=== PATIENT | female | born 1985 | race Hispanic/Latino ===

== ENCOUNTER 2016-09-26 13:15 | Emergency (ER) | payer OTHER ==
[~2016-09-26] VITALS: Ht 165.1 cm; Wt 70.9 kg
[~2016-09-26 13:15] MED LIST: ADDERALL XR 2020 MG PO; ADDERALL XR 3030 MG PO; ADDERALL20 MG PO; ADDERALL30 MG PO; ATIVAN0.5 MG PO; BACLOFEN10 MG PO; BACTRIM,SEPT1 TABLET PO; BENTYL10 MG PO; CIPRO500 MG PO; Ceftin PO; DEPAKOTE ER500 MG PO; DEPAKOTE500 MG PO; DILAUDID2 MG PO; DIVALPROEX SOD500 MG PO; Depakote ER (Extende PO; FLEXERIL5 MG PO; GEODON20 MG PO; GEODON40 MG PO; GEODON80 MG PO; Geodon PO; HYDROCODON-ACE1 EACH PO; Habitrol,Nicoderm CQ TD; IBUPROFEN800 MG PO; LAMICTAL100 MG PO; LIDOCAINE5 GM TP; LORAZEPAM0.5 MG PO; MAGIC MOUTHWASH1 ML MM; METHYLPHENIDATE20 M1 PO; MINIPRESS2 MG PO; MORPHINE SULFAT15 M1 PO; NAPROSYN500 MG PO; NAPROXEN500 MG PO; PERCOCET 5/31 TABLET PO; PREDNISONE20 MG PO; PROTONIX40 MG PO; RESTORIL15 MG PO; RITALIN20 MG PO; RITALIN5 MG PO; ROBAXIN500 MG PO; SERTRALINE HCL100 MG PO; SERTRALINE HCL50 MG PO; SULINDAC200 MG PO; Stool; TOPAMAX100 MG PO; TOPAMAX50 MG PO; TOPIRAMATE100 MG PO; TORADOL10 MG PO; TUMS500 MG PO; ULTRAM50 MG PO; VALIUM5 MG PO; VALTREX1000 MG PO; VENLAFAXINE HCL75 M3 PO; VOLTAREN50 MG PO; ZIPRASIDONE HCL40 MG PO; ZIPRASIDONE HCL80 MG PO; ZOLOFT100 MG PO; ZOLOFT50 MG PO; Zoloft PO
[2016-09-26 13:34] VITALS: BP 117/75
[2016-09-26] MEDS ORDERED: INDOCIN50 MG PO (16:35)
[2016-09-26] MEDS ORDERED: PREDNISONE20 MG PO (16:35)
== END 2016-09-26 17:58 | disposition home or self-care (01) ==
LOC: EME 13:15
DX: S16.1XXA Strain of muscle, fascia and tendon at neck level, initial encounter (principal); M54.5 Low back pain; R51 Headache; M79.604 Pain in right leg; M79.601 Pain in right arm; V47.5XXA Car driver injured in collision with fixed or stationary object in traffic accident, initial encounter; W22.10XA Striking against or struck by unspecified automobile airbag, initial encounter; G89.29 Other chronic pain; Z79.891 Long term (current) use of opiate analgesic
CPT/HCPCS: 72040; 72100; 99281; 99283

== ENCOUNTER 2017-04-09 21:10 | Emergency (ER) | payer OTHER ==
[~2017-04-09] VITALS: Ht 165.1 cm; Wt 90.1 kg
[~2017-04-09 21:10] MED LIST changes: +INDOCIN50 MG PO
[2017-04-09 22:28] LABS: POINT-OF-CARE METER ID UU13113747
[2017-04-09 22:33] LABS: INTERNAL CONTROL VALID? YES
[2017-04-09 22:41] LABS: ADD MIUA? YES; BILIRUBIN NEGATIVE; BLOOD SMALL; COLOR YELLOW ((YELLOW)); GLUCOSE (STRIP) NEGATIVE; KETONES NEGATIVE; LEUKOCYTES LARGE; NITRITE POSITIVE; PROTEIN (STRIP) 30; SPECIFIC GRAVITY 1.017 (1.000-1.030); UROBILINOGEN 0.2 MG/DL (0.2-1.0)
[2017-04-09 23:06] LABS: RED BLOOD CELLS 0-5 /HPF (0-5)
[2017-04-09 23:07] LABS: AMORPHOUS PHOSPHATE CRYSTALS 2+; BACTERIA 3+ /HPF; CASTS NONE SEEN /LPF; CRYSTALS PRESENT; EPITHELIAL CELLS 2+ /HPF; MUCUS RARE /LPF; UCUL ADDED? YES
[2017-04-09] MEDS ORDERED: BACTRIM,SEPT1 TABLET PO (23:09)
[2017-04-09 23:18] VITALS: BP 119/71
== END 2017-04-09 23:19 | disposition home or self-care (01) ==
LOC: EME 21:10 → EXP 21:10
PROVIDERS: Physician Assistant
DX: N39.0 Urinary tract infection, site not specified (principal); R11.2 Nausea with vomiting, unspecified; Z90.710 Acquired absence of both cervix and uterus; Z88.0 Allergy status to penicillin; F17.200 Nicotine dependence, unspecified, uncomplicated
CPT/HCPCS: 81003; 82948; 84703; 87077; 87086; 87186; 99281; 99284

== ENCOUNTER 2017-06-28 11:21 | Emergency (ER) | payer OTHER ==
[~2017-06-28] VITALS: Ht 165.1 cm; Wt 92.5 kg
[2017-06-28 12:25] LABS: HEMATOCRIT 40.2 % (36.0-46.0); MCH 31.8 PG (29.0-34.0); MCHC 33.8 G/DL (30.0-36.0); MCV 93.9 FL (83-99); MEAN PLAT.VOLUME 10.3 uM^3 (9.5-12.4); PLATELET COUNT 246 K/uL (156-360); RBC DIS.WIDTH-CV 14.7 % (11.8-14.6); RBC DIS.WIDTH-SD 51.4 % (39-53); RED BLOOD COUNT 4.28 M/uL (3.80-5.20); WHITE BLOOD COUNT 6.7 K/uL (4.1-10.2)
[2017-06-28 12:34] LABS: CHLORIDE 108 mEq/L (99-109); POTASSIUM 4.9 mEq/L (3.7-5.4); SODIUM 140 mEq/L (136-147)
[2017-06-28 12:36] LABS: GLUCOSE 98 mg/dL (70-99)
[2017-06-28 12:37] LABS: ANION GAP 8 MEQ/L (2-14)
[2017-06-28 12:38] LABS: TOTAL BILIRUBIN 0.2 mg/dL (0.0-1.0)
[2017-06-28 12:40] LABS: ALKALINE PHOSPHATASE 70 IU/L (3-129); GFR ESTIMATE (CALCULATED) > 59 mL/min/
[2017-06-28 12:41] LABS: UREA NITROGEN (BUN) 7 mg/dL (9-23)
[2017-06-28 12:48] LABS: QUANTITATIVE HCG < 4.0 MIU/ML
[2017-06-28 13:05] LABS: ADD MIUA? YES; BILIRUBIN NEGATIVE; BLOOD NEGATIVE; COLOR YELLOW ((YELLOW)); GLUCOSE (STRIP) NEGATIVE; KETONES NEGATIVE; LEUKOCYTES NEGATIVE; NITRITE NEGATIVE; PROTEIN (STRIP) NEGATIVE; SPECIFIC GRAVITY 1.011 (1.000-1.030); UROBILINOGEN 0.2 MG/DL (0.2-1.0)
[2017-06-28 13:14] LABS: BACTERIA RARE /HPF; EPITHELIAL CELLS 3+ /HPF; MUCUS TRACE /LPF; RED BLOOD CELLS 0-5 /HPF (0-5); UCUL ADDED? NO; WHITE BLOOD CELLS 0-5 /HPF (0-5)
[2017-06-28] MEDS ORDERED: CITRATE OF MAG296 ML PO (13:59)
[2017-06-28] MEDS ORDERED: FLEET ENEMA-AD118 ML PR (13:59)
[2017-06-28 14:16] VITALS: BP 123/63
== END 2017-06-28 14:17 | disposition home or self-care (01) ==
LOC: EME 11:21
DX: K59.00 Constipation, unspecified (principal); R11.0 Nausea; R50.9 Fever, unspecified; Z90.710 Acquired absence of both cervix and uterus; F17.200 Nicotine dependence, unspecified, uncomplicated
CPT/HCPCS: 74000; 80053; 81003; 84702; 85027; 99281; 99284

== ENCOUNTER 2017-08-19 12:55 | Emergency (ER) | payer OTHER ==
[~2017-08-19] VITALS: Ht 162.6 cm; Wt 94.0 kg
[~2017-08-19 12:55] MED LIST changes: +CITRATE OF MAG296 ML PO; +FLEET ENEMA-AD118 ML PR
[2017-08-19 14:00] LABS: HEMATOCRIT 43.6 % (36.0-46.0); HEMOGLOBIN 14.9 G/DL (11.9-15.5); MCH 31.8 PG (29.0-34.0); MCHC 34.2 G/DL (30.0-36.0); PLATELET COUNT 281 K/uL (156-360); RBC DIS.WIDTH-CV 13.1 % (11.8-14.6); RBC DIS.WIDTH-SD 44.6 % (39-53); RED BLOOD COUNT 4.69 M/uL (3.80-5.20); WHITE BLOOD COUNT 10.3 K/uL (4.1-10.2)
[2017-08-19 14:08] LABS: ALBUMIN 4.4 g/dL (3.2-4.8); CHLORIDE 103 mEq/L (99-109); POTASSIUM 4.3 mEq/L (3.7-5.4); SODIUM 138 mEq/L (136-147)
[2017-08-19 14:10] LABS: GLUCOSE 96 mg/dL (70-99); TOTAL PROTEIN 7.2 g/dL (6.4-8.3)
[2017-08-19 14:12] LABS: TOTAL BILIRUBIN 0.2 mg/dL (0.0-1.0)
[2017-08-19 14:14] LABS: ALKALINE PHOSPHATASE 69 IU/L (3-129); CREATININE 0.8 mg/dL (0.6-1.3); GFR ESTIMATE (CALCULATED) > 59 mL/min/
[2017-08-19 14:15] LABS: UREA NITROGEN (BUN) 10 mg/dL (9-23)
[2017-08-19 14:16] LABS: AST (GOT) 13 IU/L (2-34)
[2017-08-19 14:17] LABS: ALT (GPT) 12 IU/L (3-49)
[2017-08-19 14:41] LABS: QUANTITATIVE HCG < 4.0 MIU/ML
[2017-08-19] MEDS ORDERED: ZITHROMAX500 MG PO (15:47)
[2017-08-19 16:58] LABS: MONOSPOT (MONONUCLEOSIS SEROL) NEGATIVE (NEGATIVE)
[2017-08-19] MEDS ORDERED: ULTRAM50 MG PO (16:59)
[2017-08-19 17:18] VITALS: BP 122/79
== END 2017-08-19 17:39 | disposition home or self-care (01) ==
LOC: EME 12:55
PROVIDERS: Nurse Practitioner Family
DX: J03.90 Acute tonsillitis, unspecified (principal); S93.602A Unspecified sprain of left foot, initial encounter; X58.XXXA Exposure to other specified factors, initial encounter; Z88.0 Allergy status to penicillin; F17.200 Nicotine dependence, unspecified, uncomplicated
CPT/HCPCS: 73630; 80053; 84702; 85027; 86308; 87651 90; 99281; 99284; J1100

== ENCOUNTER 2017-10-29 14:35 | Emergency (ER) | payer OTHER ==
[~2017-10-29] VITALS: Ht 162.6 cm; Wt 95.4 kg
[~2017-10-29 14:35] MED LIST changes: +ZITHROMAX500 MG PO
[2017-10-29 17:26] LABS: HEMATOCRIT 40.7 % (36.0-46.0); MCH 31.8 PG (29.0-34.0); MCHC 34.4 G/DL (30.0-36.0); MCV 92.5 FL (83-99); PLATELET COUNT 257 K/uL (156-360); RBC DIS.WIDTH-CV 12.9 % (11.8-14.6); WHITE BLOOD COUNT 9.1 K/uL (4.1-10.2)
[2017-10-29 17:34] LABS: CHLORIDE 101 mEq/L (99-109); POTASSIUM 4.2 mEq/L (3.7-5.4); SODIUM 138 mEq/L (136-147)
[2017-10-29 17:36] LABS: GLUCOSE 86 mg/dL (70-99)
[2017-10-29 17:40] LABS: CREATININE 0.8 mg/dL (0.6-1.3); GFR ESTIMATE (CALCULATED) > 59 mL/min/
[2017-10-29 17:41] LABS: UREA NITROGEN (BUN) 12 mg/dL (9-23)
[2017-10-29] MEDS ORDERED: PROMETHAZINE HC25 M1 PO (17:44)
[2017-10-29] MEDS ORDERED: FIORICET 50-301 EAC1 PO (17:44)
[2017-10-29 17:50] LABS: QUANTITATIVE HCG < 4.0 MIU/ML
[2017-10-29 18:40] VITALS: BP 103/70
== END 2017-10-29 18:43 | disposition home or self-care (01) ==
LOC: EME 14:35
PROVIDERS: Physician Assistant
DX: G43.909 Migraine, unspecified, not intractable, without status migrainosus (principal); K21.9 Gastro-esophageal reflux disease without esophagitis; F32.9 Major depressive disorder, single episode, unspecified; F90.9 Attention-deficit hyperactivity disorder, unspecified type; F31.9 Bipolar disorder, unspecified; F43.10 Post-traumatic stress disorder, unspecified; F17.200 Nicotine dependence, unspecified, uncomplicated; Z79.891 Long term (current) use of opiate analgesic; Z98.51 Tubal ligation status; Z90.711 Acquired absence of uterus with remaining cervical stump; Z88.0 Allergy status to penicillin; Z88.5 Allergy status to narcotic agent; Z88.6 Allergy status to analgesic agent
CPT/HCPCS: 80048; 84702; 85027; 99281; 99284; J1100; J1885; J2765; J7030